=== PATIENT | male | born 1940 | race Two or more races ===

== ENCOUNTER 2016-10-05 02:33 | Inpatient (IN) | payer MEDICARE, MEDICAID ==
[2016-10-05] VITALS (13 sets, daily range): BP systolic 94–136; BP diastolic 54–84
[~2016-10-05] VITALS: Ht 167.6 cm; Wt 72.6 kg
[2016-10-05] MEDS ORDERED: VITAMIN B COMP1 EAC2 ORAL (02:46)
[2016-10-05] MEDS ORDERED: MILK OF MA400 MG/51 ORAL (02:46)
[2016-10-05] MEDS ORDERED: VITAMIN D1000 UNI1 ORAL (02:46)
[2016-10-05] MEDS ORDERED: ASPIR 8181 MG ORAL (02:46)
[2016-10-05] MEDS ORDERED: NITROGLYCERIN0.4 MG SL (02:46)
[2016-10-05] MEDS ORDERED: LIPITOR20 MG ORAL (02:46)
[2016-10-05] MEDS ORDERED: TYLENOL EXTRA500 MG ORAL (02:46)
[2016-10-05] MEDS ORDERED: DONEPEZIL HCL5 MG ORAL (02:46)
[2016-10-05 03:45] LABS: BASOPHILS % (AUTO) 1.8 % (0.0-2.0); EOSINOPHILS % (AUTO) 3.7 % (0.0-3.0); LYMPHOCYTES % (AUTO) 30.5 % (20.0-45.0); MEAN CORPUSCULAR HEMOGLOBIN 31.8 PG (27.0-31.0); MEAN CORPUSCULAR VOLUME 96 FL (80-99); MEAN PLATELET VOLUME 6.5 FL (6.5-10.1); MONOCYTES % (AUTO) 9.4 % (1.0-10.0); NEUTROPHILS % (AUTO) 54.5 % (45.0-75.0); PLATELET COUNT 205 K/UL (150-450); RED BLOOD COUNT 4.46 M/UL (4.70-6.10); RED CELL DISTRIBUTION WIDTH 12.8 % (11.6-14.8)
[2016-10-05 04:04] LABS: ALANINE AMINOTRANSFERASE 16 U/L (3-41); ALBUMIN/GLOBULIN RATIO 1.2 (1.0-2.7); ANION GAP 13 (5-15); ASPARTATE AMINO TRANSFERASE 26 U/L (5-40); CARBON DIOXIDE 26 mEQ/L (20-30); CHLORIDE 102 mEQ/L (98-107); CREATININE 1.5 mg/dL (0.7-1.2); HEMOLYSIS 116; POTASSIUM 4.9 mEQ/L (3.4-4.9); SODIUM 141 mEQ/L (135-145); TOTAL PROTEIN 7.1 g/dL (6.6-8.7)
[2016-10-05 04:33] LABS: APPEARANCE,URINE CLEAR; KETONES,URINE NEGATIVE (NEGATIVE); LEUKOCYTE ESTERASE ,URINE NEGATIVE (NEGATIVE); NITRITE,URINE NEGATIVE (NEGATIVE); PH,URINE 5 (4.5-8.0); PROTEIN,URINE NEGATIVE (NEGATIVE); UROBILINOGEN,URINE NORMAL MG/DL (0.0-1.0)
[2016-10-05 04:36] LABS: TROPONIN I < 0.30 ng/mL (<=0.30)
[2016-10-05] MEDS ORDERED: Haloperidol 5mg/ml Inj IM ONE (04:45)
--- NOTE | 2016-10-05 06:13 | Emergency Room Report ---
History of Present Illness General Chief Complaint: Upper Respiratory Illness Source: Medical Record Present Illness HPI 68-year-old male presents to ED for evaluation. Per EMS patient was coughing and congested at his convalescent home starting tonight. Cough is productive of yellowish sputum. No reported fevers chills. No chest pain or shortness of breath. Patient has dementia and is unable to provide any additional history at this time. No other aggravating or relieving factors. Denies any other associated symptoms Allergies: Coded Allergies: No Known Allergies (Unverified , 10/05/16) Patient History Past Medical History: COPD, dementia Past Surgical History: none Pertinent Family History: none Social History: Denies: alcohol use, drug use, smoking Immunizations: UTD Reviewed Nursing Documentation: PMH: Agreed, PSxH: Agreed Nursing Documentation-PMH Hx Hypertension: Yes - Hyperlipidemia Hx COPD: Yes History Of Psychiatric Problem: Yes - Alzheimers, Dementia Review of Systems All Other Systems: negative except mentioned in HPI Physical Exam Vital Signs Date Time Temp Pulse Resp B/P Pulse Ox O2 Delivery O2 Flow Rate FiO2 10/05/16 02:18 100 10/05/16 02:18 63 16 122/78 Room Air 10/05/16 02:29 97.8 Sp02 EP Interpretation: reviewed, normal General Appearance: no apparent distress, alert, GCS 15, non-toxic Head: normocephalic Eyes: bilateral eye PERRL, bilateral eye normal inspection ENT: normal ENT inspection Neck: normal inspection Respiratory: accessory muscle use, crackles Cardiovascular #1: regular rate, rhythm, no edema Gastrointestinal: normal bowel sounds, non tender, soft, non-distended, no guarding, no rebound Rectal: deferred Genitourinary: no CVA tenderness Musculoskeletal: normal inspection Neurologic: alert, oriented x3, responsive, motor strength/tone normal, sensory intact, speech normal Psychiatric: normal inspection Skin: normal inspection Lymphatic: normal inspection Medical Decision Making Diagnostic Impression: Primary Impression: Pneumonia Qualified Codes: J18.9 - Pneumonia, unspecified organism Additional Impression: ARF (acute renal failure) Qualified Codes: N17.9 - Acute kidney failure, unspecified ER Course Hospital Course 76-year-old M presenting to ED with respiratory distress, cough and crackles Differential diagnoses include: Pneumonia, CHF exacerbation, pneumothorax, fluid overload Clinical course Patient placed on stretcher. On quality assurance monitor final. After initial history and physical, I ordered labs, IV fluids, EKG, chest x-ray, blood cultures, UA. Patient placed on nasal cannula with O2 saturation improving Labs -leukocytosis noted, hemoglobin/hematocrit stable, BUN/Cr elevated, lactate okay troponins negative CXR - R lower lobe infiltrate Abx given. IVFs given. Case discussed with Dr. Atkinson and he agreed to the patient to his service for further care and support I feel this is a highly complex case requiring extensive working including EKG/ Rhythm strip, Xray/CT/US, Blood/urine lab work, repeat exams while in ED, and administration of strong opiates/narcotics for pain control, admission to hospital or close patient follow up. Diagnosis - pneumonia, ARF Patient admitted to floor in serious condition Labs Test 10/05/16 03:15 10/05/16 03:28 White Blood Count 11.0 K/UL (4.8-10.8) Red Blood Count 4.46 M/UL (4.70-6.10) Hemoglobin 14.2 G/DL (14.2-18.0) Hematocrit 42.9 % (42.0-52.0) Mean Corpuscular Volume 96 FL (80-99) Mean Corpuscular Hemoglobin 31.8 PG (27.0-31.0) Mean Corpuscular Hemoglobin Concent 33.0 G/DL (32.0-36.0) Red Cell Distribution Width 12.8 % (11.6-14.8) Platelet Count 205 K/UL (150-450) Mean Platelet Volume 6.5 FL (6.5-10.1) Neutrophils (%) (Auto) 54.5 % (45.0-75.0) Lymphocytes (%) (Auto) 30.5 % (20.0-45.0) Monocytes (%) (Auto) 9.4 % (1.0-10.0) Eosinophils (%) (Auto) 3.7 % (0.0-3.0) Basophils (%) (Auto) 1.8 % (0.0-2.0) Sodium Level 141 mEQ/L (135-145) Potassium Level 4.9 mEQ/L (3.4-4.9) Chloride Level 102 mEQ/L (98-107) Carbon Dioxide Level 26 mEQ/L (20-30) Anion Gap 13 (5-15) Blood Urea Nitrogen 26 mg/dL (7-23) Creatinine 1.5 mg/dL (0.7-1.2) Estimat Glomerular Filtration Rate mL/min (>60) Glucose Level 112 mg/dL (74-106) Lactic Acid Level 1.30 mmol/L (0.66-2.22) Calcium Level 9.0 mg/dL (8.6-10.2) Total Bilirubin 0.3 mg/dL (0.0-1.2) Aspartate Amino Transf (AST/SGOT) 26 U/L (5-40) Alanine Aminotransferase (ALT/SGPT) 16 U/L (3-41) Alkaline Phosphatase 93 U/L (40-129) Total Creatine Kinase 196 U/L (38-174) Troponin I < 0.30 ng/mL (<=0.30) Total Protein 7.1 g/dL (6.6-8.7) Albumin 4.0 g/dL (3.5-5.2) Globulin 3.1 g/dL Albumin/Globulin Ratio 1.2 (1.0-2.7) Urine Color Pale yellow Urine Appearance Clear Urine pH 5 (4.5-8.0) Urine Specific [place] 1.020 (1.005-1.035) Urine Protein Negative (NEGATIVE) Urine Glucose (UA) Negative (NEGATIVE) Urine Ketones Negative (NEGATIVE) Urine Occult Blood Negative (NEGATIVE) Urine Nitrite Negative (NEGATIVE) Urine Bilirubin Negative (NEGATIVE) Urine Urobilinogen Normal MG/DL (0.0-1.0) Urine Leukocyte Esterase Negative (NEGATIVE) EKG Diagnostic Results Rate: bradycardiac Rhythm: NSR ST Segments: no acute changes ASA given to the pt in ED: No Rhythm Strip Diag. Results EP Interpretation: yes Rhythm: NSR, no PVC's, no ectopy Chest X-Ray Diagnostic Results EP Interpretation: Yes Findings: no pneumothorax, no acute cardiopulmonary disease, other - atelectasis Number of Views: 1 Last Vital Signs Date Time Temp Pulse Resp B/P Pulse Ox O2 Delivery O2 Flow Rate FiO2 10/05/16 05:49 97.8 62 16 114/67 98 Room Air Status: improved Disposition: ADMITTED INPATIENT Condition: Serious Referrals: MERLINE SNYDER (PCP) JUANCARLOS PRICE M.D. Oct 05, 2016 06:13
[2016-10-05 07:14] LABS: CKMB < 1.5 ng/mL (< 6.7)
--- NOTE | 2016-10-05 10:50 | Diagnostic Imaging Report ---
Indication: Chest Pain Comparison: None A single view chest radiograph was obtained. Findings: No definite infiltrate or pulmonary vascular congestion identified. The heart is enlarged. The aorta is mildly enlarged consistent with atherosclerotic vascular disease. The bones are osteopenic. Impression: No acute disease
[2016-10-05] MEDS ORDERED: Nitroglycerin Subl 0.4mg tab (Bottle Of 25) SL PRN (19:30)
[2016-10-05] MEDS ORDERED: Azithromycin 250mg tab ORAL SCH (21:00)
[2016-10-05] MEDS: Atorvastatin 20mg tab ORAL SCH (22:24)
[2016-10-05] MEDS: Donepezil 5mg Tab ORAL SCH (22:25)
[2016-10-05] MEDS: cefTRIAXone 1 GM in D5W 50 ML IVPB SCH (22:27)
[2016-10-05] MEDS: Azithromycin 250mg tab ORAL SCH (22:39)
[2016-10-06] VITALS (7 sets, daily range): BP systolic 118–136; BP diastolic 61–77
--- NOTE | 2016-10-06 | History and Physical ---
History of Present Illness General Reason for Hospitalization: Upper Respiratory Illness Present Illness HPI Cough and congestion for a couple of days. Allergies: Coded Allergies: No Known Allergies (Unverified , 10/05/16) Medication History Scheduled Aspirin* (Aspir 81*), 81 MG ORAL DAILY, (Reported) Atorvastatin Calcium* (Lipitor*), 20 MG ORAL DAILY, (Reported) Cholecalciferol (Vitamin D3)* (Vitamin D*), 1,000 UNIT ORAL DAILY, (Reported) Donepezil Hcl* (Donepezil Hcl*), 5 MG ORAL DAILY, (Reported) Magnesium Hydroxide* (Milk Of Magnesia*), 30 ML ORAL DAILY, (Reported) Scheduled PRN Acetaminophen* (Tylenol Extra Strength*), 500 MG ORAL Q6H PRN for Mild Pain/ Temp > 100.5, (Reported) Miscellaneous Medications Nitroglycerin (Nitroglycerin), 0.4 MG SL, (Reported) Vitamin B Complex (Vitamin B Complex), 1 CAP ORAL, (Reported) Patient History Limited by: age History Provided By: Medical Record Healthcare decision maker Resuscitation status Full Code Advanced Directive on File Past Medical/Surgical History Past Medical/Surgical History: (1) Hypertension (2) Hyperlipidemia (3) Atherosclerotic cardiovascular disease Review of Systems Constitutional: Reports: no symptoms Eye: Reports: no symptoms ENT: Reports: no symptoms Respiratory: Reports: cough, shortness of breath, wheezing Gastrointestinal: Reports: no symptoms Musculoskeletal: Reports: no symptoms Skin: Reports: no symptoms Neurological: Reports: no symptoms Endocrine: Reports: no symptoms Hematologic/Lymphatic: Reports: no symptoms Physical Exam HEENT: normocephalic, atraumatic, PERRL, EOMI Neck: non-tender Respiratory/Chest: no respiratory distress, crackles/rales, rhonchi - bilaterally Breasts: no masses Cardiovascular/Chest: normal rate, regular rhythm Abdomen: normal bowel sounds, non tender, soft Genitourinary/Rectal: normal genital exam Extremities: normal range of motion, non-tender Skin Exam: warm/dry 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, no motor/sensory deficits Lymphatic: anterior cervical Musculoskeletal: normal muscle bulk Last 24 Hour Vital Signs Date Time Temp Pulse Resp B/P Pulse Ox O2 Delivery O2 Flow Rate FiO2 10/05/16 20:00 97.0 65 18 129/75 95 Room Air 10/05/16 15:58 97.8 64 13 121/68 97 Room Air 64 10/05/16 15:27 97.8 64 13 121/68 97 Room Air 10/05/16 14:30 97.8 64 13 121/68 97 Room Air 10/05/16 13:30 97.8 64 16 136/63 96 Room Air 10/05/16 12:30 97.8 71 15 136/63 96 Room Air 10/05/16 10:32 97.8 60 18 108/69 97 Room Air 10/05/16 09:30 97.8 65 15 122/84 97 Room Air 10/05/16 08:59 97.8 58 12 94/58 96 Room Air 10/05/16 07:21 97.8 64 15 131/72 97 Room Air 10/05/16 06:49 97.8 69 16 136/80 97 Room Air 10/05/16 05:49 97.8 62 16 114/67 98 Room Air 10/05/16 05:03 97.8 61 15 130/65 97 Room Air 10/05/16 02:29 58 18 Room Air 10/05/16 02:29 97.8 57 17 108/54 97 Room Air 10/05/16 02:29 58 18 10/05/16 02:18 63 16 122/78 100 Room Air 10/05/16 02:18 100 Intake and Output 10/04/16 10/05/16 19:00 07:00 Intake Total 500 ml Output Total 250 ml Balance 250 ml IV Total 500 ml Output Urine Total 250 ml # Voids 1 Laboratory Tests Test 10/05/16 03:15 10/05/16 03:28 White Blood Count 11.0 K/UL (4.8-10.8) H Red Blood Count 4.46 M/UL (4.70-6.10) L Hemoglobin 14.2 G/DL (14.2-18.0) Hematocrit 42.9 % (42.0-52.0) Mean Corpuscular Volume 96 FL (80-99) Mean Corpuscular Hemoglobin 31.8 PG (27.0-31.0) H Mean Corpuscular Hemoglobin Concent 33.0 G/DL (32.0-36.0) Red Cell Distribution Width 12.8 % (11.6-14.8) Platelet Count 205 K/UL (150-450) Mean Platelet Volume 6.5 FL (6.5-10.1) Neutrophils (%) (Auto) 54.5 % (45.0-75.0) Lymphocytes (%) (Auto) 30.5 % (20.0-45.0) Monocytes (%) (Auto) 9.4 % (1.0-10.0) Eosinophils (%) (Auto) 3.7 % (0.0-3.0) H Basophils (%) (Auto) 1.8 % (0.0-2.0) Sodium Level 141 mEQ/L (135-145) Potassium Level 4.9 mEQ/L (3.4-4.9) Chloride Level 102 mEQ/L (98-107) Carbon Dioxide Level 26 mEQ/L (20-30) Anion Gap 13 (5-15) Blood Urea Nitrogen 26 mg/dL (7-23) H Creatinine 1.5 mg/dL (0.7-1.2) H Estimat Glomerular Filtration Rate mL/min (>60) Glucose Level 112 mg/dL (74-106) H Lactic Acid Level 1.30 mmol/L (0.66-2.22) Calcium Level 9.0 mg/dL (8.6-10.2) Total Bilirubin 0.3 mg/dL (0.0-1.2) Aspartate Amino Transf (AST/SGOT) 26 U/L (5-40) Alanine Aminotransferase (ALT/SGPT) 16 U/L (3-41) Alkaline Phosphatase 93 U/L (40-129) Total Creatine Kinase 196 U/L (38-174) H Creatine Kinase MB < 1.5 ng/mL (< 6.7) Creatine Kinase MB Relative Index Troponin I < 0.30 ng/mL (<=0.30) Pro-B-Type Natriuretic Peptide 104 pg/mL (0-450) Total Protein 7.1 g/dL (6.6-8.7) Albumin 4.0 g/dL (3.5-5.2) Globulin 3.1 g/dL Albumin/Globulin Ratio 1.2 (1.0-2.7) Urine Color Pale yellow Urine Appearance Clear Urine pH 5 (4.5-8.0) Urine Specific [place] 1.020 (1.005-1.035) Urine Protein Negative (NEGATIVE) Urine Glucose (UA) Negative (NEGATIVE) Urine Ketones Negative (NEGATIVE) Urine Occult Blood Negative (NEGATIVE) Urine Nitrite Negative (NEGATIVE) Urine Bilirubin Negative (NEGATIVE) Urine Urobilinogen Normal MG/DL (0.0-1.0) Urine Leukocyte Esterase Negative (NEGATIVE) Microbiology Date/Time Source Procedure Growth Status 10/05/16 03:15 Nasal Nares Influenza Types A,B Antigen (MERARI) - Final Complete Height (Feet): 5 Height (Inches): 6.00 Weight (Pounds): 160 Medications Current Medications Medications (Trade) Dose Ordered Sig/Laurie Route PRN Reason Start Time Stop Time Status Last Admin Dose Admin Acetaminophen (Tylenol) 650 mg Q6HR PRN ORAL Mild Pain/Temp > 100.5 10/05/16 19:30 11/04/16 19:29 Aspirin (Ecotrin) 81 mg DAILY ORAL 10/06/16 09:00 11/05/16 08:59 Atorvastatin Calcium (Lipitor) 20 mg QHS ORAL 10/05/16 21:00 11/04/16 20:59 10/05/16 22:24 Azithromycin (Zithromax) 250 mg Taper Q24H ORAL 10/05/16 21:00 10/12/16 20:59 10/05/16 22:39 Ceftriaxone Sodium/Dextrose (Rocephin/D5W 50ml) 50 ml @ 100 mls/hr Q24H IVPB 10/05/16 21:00 10/12/16 20:59 10/05/16 22:27 Donepezil HCl (Aricept) 5 mg QHS ORAL 10/05/16 21:00 11/04/16 20:59 10/05/16 22:25 Heparin Sodium (Porcine) (Heparin 5000 units/ml) 5,000 units EVERY 12 HOURS SUBQ 10/06/16 09:00 11/05/16 08:59 Nitroglycerin (Ntg) 0.4 mg Q5M PRN SL CHEST PAIN 10/05/16 19:30 11/04/16 19:29 Vitamin B Complex (Vitamin B Complex) 1 ea DAILY ORAL 10/06/16 09:00 11/05/16 08:59 Assessment/Plan Problem List: (1) Pneumonia ICD Codes: J18.9 - Pneumonia, unspecified organism SNOMED: 474927379 Qualifiers: Qualified Codes: J18.9 - Pneumonia, unspecified organism (2) ARF (acute renal failure) ICD Codes: N17.9 - Acute kidney failure, unspecified SNOMED: 73334942 Qualifiers: Qualified Codes: N17.9 - Acute kidney failure, unspecified (3) Hypertension ICD Codes: I10 - Essential (primary) hypertension SNOMED: 45294751 (4) Hyperlipidemia ICD Codes: E78.5 - Hyperlipidemia, unspecified SNOMED: 35106286 (5) Atherosclerotic cardiovascular disease ICD Codes: I25.10 - Atherosclerotic heart disease of [place] coronary artery without angina pectoris SNOMED: 44862270 Assessment/Plan Patient will be on Zithromax and NENA Morris Oct 06, 2016 00:00
[2016-10-06] MEDS: DuoNeb 0.5-3(2.5)mg/3ml neb HHN SCH ×4 (02:23→19:46)
[2016-10-06] MEDS: Aspirin EC 81mg tab ORAL SCH (10:01)
[2016-10-06] MEDS: Heparin 5000 units/ml inj SUBQ SCH ×2 (10:02→20:36)
[2016-10-06 10:28] LABS: MEAN CORPUSCULAR HEMOGLOBIN 30.9 PG (27.0-31.0); MEAN CORPUSCULAR HGB CONC 31.8 G/DL (32.0-36.0); MEAN CORPUSCULAR VOLUME 97 FL (80-99); MEAN PLATELET VOLUME 6.5 FL (6.5-10.1); PLATELET COUNT 238 K/UL (150-450); RED BLOOD COUNT 4.47 M/UL (4.70-6.10); RED CELL DISTRIBUTION WIDTH 12.8 % (11.6-14.8); WHITE BLOOD COUNT 9.4 K/UL (4.8-10.8)
[2016-10-06 10:49] LABS: ALANINE AMINOTRANSFERASE 16 U/L (3-41); ALBUMIN/GLOBULIN RATIO 1.4 (1.0-2.7); ANION GAP 14 (5-15); ASPARTATE AMINO TRANSFERASE 25 U/L (5-40); CALCIUM 9.1 mg/dL (8.6-10.2); CARBON DIOXIDE 26 mEQ/L (20-30); CHLORIDE 101 mEQ/L (98-107); CREATININE 1.3 mg/dL (0.7-1.2); HEMOLYSIS 6; POTASSIUM 4.2 mEQ/L (3.4-4.9); SODIUM 141 mEQ/L (135-145)
[2016-10-06 11:25] LABS: BAND NEUTROPHILS % (MANUAL) 0 % (0-8); BASOPHILS % (MANUAL) 0 % (0-2); EOSINOPHILS % (MANUAL) 0 % (0-3); LYMPHOCYTES % (MANUAL) 31 % (20-45); NEUTROPHILS % (MANUAL) 58 % (45-75); PLATELET ESTIMATE ADEQUATE; PLATELET MORPHOLOGY NORMAL; TOTAL CELLS COUNTED 100
--- NOTE | 2016-10-06 14:26 | General Progress Note ---
Assessment/Plan Problem List: (1) Pneumonia ICD Codes: J18.9 - Pneumonia, unspecified organism SNOMED: 328873180 Qualifiers: Qualified Codes: J18.9 - Pneumonia, unspecified organism (2) ARF (acute renal failure) ICD Codes: N17.9 - Acute kidney failure, unspecified SNOMED: 81877748 Qualifiers: Qualified Codes: N17.9 - Acute kidney failure, unspecified (3) Hypertension ICD Codes: I10 - Essential (primary) hypertension SNOMED: 78309142 (4) Hyperlipidemia ICD Codes: E78.5 - Hyperlipidemia, unspecified SNOMED: 65476667 (5) Atherosclerotic cardiovascular disease ICD Codes: I25.10 - Atherosclerotic heart disease of [place] coronary artery without angina pectoris SNOMED: 23480943 Status: progressing Assessment/Plan will repeat cxr Subjective Date patient seen: Oct 06, 2016 Time patient seen: 14:17 ROS Limited/Unobtainable: No Constitutional: Reports: no symptoms HEENT: Reports: no symptoms Cardiovascular: Reports: no symptoms Respiratory: Reports: cough Gastrointestinal/Abdominal: Reports: no symptoms Genitourinary: Reports: no symptoms Neurologic/Psychiatric: Reports: no symptoms Endocrine: Reports: no symptoms Hematologic/Lymphatic: Reports: no symptoms Allergies: Coded Allergies: No Known Allergies (Unverified , 10/05/16) Objective Last 24 Hour Vital Signs Date Time Temp Pulse Resp B/P Pulse Ox O2 Delivery O2 Flow Rate FiO2 10/06/16 13:43 67 18 100 Room Air 10/06/16 13:30 65 16 Room Air 10/06/16 12:00 97.8 67 19 130/75 96 Room Air 10/06/16 08:00 96.6 64 19 122/68 96 Room Air 10/06/16 07:15 69 18 100 Room Air 10/06/16 07:03 68 18 97 Room Air 10/06/16 04:00 98.2 69 19 133/74 96 Room Air 10/06/16 01:40 68 20 96 Room Air 10/06/16 01:30 63 20 94 Room Air 21 10/06/16 00:00 97.6 64 18 130/77 95 Room Air 10/05/16 22:00 62 20 Room Air 21 10/05/16 20:00 97.0 65 18 129/75 95 Room Air 10/05/16 15:58 97.8 64 13 121/68 97 Room Air 64 10/05/16 15:27 97.8 64 13 121/68 97 Room Air 10/05/16 14:30 97.8 64 13 121/68 97 Room Air Intake and Output 10/05/16 10/06/16 19:00 07:00 Intake Total 1000 ml 500 ml Output Total 750 ml 250 ml Balance 250 ml 250 ml Intake Oral 500 ml IV Total 1000 ml Output Urine Total 750 ml 250 ml # Voids 3 Laboratory Tests 10/06/16 09:45: White Blood Count 9.4, Red Blood Count 4.47L, Hemoglobin 13.8L, Hematocrit 43.5 , Mean Corpuscular Volume 97, Mean Corpuscular Hemoglobin 30.9, Mean Corpuscular Hemoglobin Concent 31.8L, Red Cell Distribution Width 12.8, Platelet Count 238, Mean Platelet Volume 6.5, Neutrophils (%) (Auto) , Lymphocytes (%) (Auto) , Monocytes (%) (Auto) , Eosinophils (%) (Auto) , Basophils (%) (Auto) , Differential Total Cells Counted 100, Neutrophils % ( Manual) 58, Lymphocytes % (Manual) 31, Monocytes % (Manual) 11H, Eosinophils % ( Manual) 0, Basophils % (Manual) 0, Band Neutrophils 0, Platelet Estimate Adequate, Platelet Morphology Normal, Red Blood Cell Morphology Normal, Sodium Level 141, Potassium Level 4.2, Chloride Level 101, Carbon Dioxide Level 26, Anion Gap 14, Blood Urea Nitrogen 16, Creatinine 1.3H, Estimat Glomerular Filtration Rate , Glucose Level 143H, Calcium Level 9.1, Total Bilirubin 0.4, Aspartate Amino Transf (AST/SGOT) 25, Alanine Aminotransferase (ALT/SGPT) 16, Alkaline Phosphatase 104, Total Protein 7.0, Albumin 4.1, Globulin 2.9, Albumin/ Globulin Ratio 1.4 Height (Feet): 5 Height (Inches): 6.00 Weight (Pounds): 160 General Appearance: no apparent distress EENT: PERRL/EOMI Neck: non-tender Cardiovascular: normal rate, regular rhythm, no JVD Respiratory/Chest: no respiratory distress, decreased breath sounds Abdomen: normal bowel sounds Extremities: normal range of motion 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
--- NOTE | 2016-10-06 15:11 | Consultation ---
History of Present Illness General Chief Complaint: Upper Respiratory Illness Referring physician: Dr Atkinson Reason for Consultation: Acute renal injury Present Illness HPI The patient is a 68-year-old male who presented to ED with coughing and congested. Cough is productive of yellowish sputum. No reported fevers or chills. No chest pain or shortness of breath. Patient has dementia and is unable to provide any history at this time. History is therefore obtained from medical records. No other aggravating or relieving factors. Denies any other associated symptoms. He is a retirement resident. Allergies: Coded Allergies: No Known Allergies (Unverified , 10/05/16) Medication History Scheduled Aspirin* (Aspir 81*), 81 MG ORAL DAILY, (Reported) Atorvastatin Calcium* (Lipitor*), 20 MG ORAL DAILY, (Reported) Cholecalciferol (Vitamin D3)* (Vitamin D*), 1,000 UNIT ORAL DAILY, (Reported) Donepezil Hcl* (Donepezil Hcl*), 5 MG ORAL DAILY, (Reported) Magnesium Hydroxide* (Milk Of Magnesia*), 30 ML ORAL DAILY, (Reported) Scheduled PRN Acetaminophen* (Tylenol Extra Strength*), 500 MG ORAL Q6H PRN for Mild Pain/ Temp > 100.5, (Reported) Miscellaneous Medications Nitroglycerin (Nitroglycerin), 0.4 MG SL, (Reported) Vitamin B Complex (Vitamin B Complex), 1 CAP ORAL, (Reported) Patient History Limited by: language barrier, medical condition, other - mental status History Provided By: Medical Record Healthcare decision maker Resuscitation status Full Code Advanced Directive on File Past Medical/Surgical History Past Medical/Surgical History: (1) Dementia (2) Hypertension (3) Hyperlipidemia (4) Atherosclerotic cardiovascular disease Social History Social History: (1) [facility] resident (2) No history of alcohol use (3) Does not smoke (4) No illicit drug use Review of Systems All Other Systems: negative except mentioned in HPI ROS Narrative unable to obtain due to pt's mental state Physical Exam General Appearance: no apparent distress, confused Lines, tubes and drains: peripheral HEENT: normocephalic Neck: normal alignment Respiratory/Chest: decreased breath sounds Cardiovascular/Chest: normal peripheral pulses Abdomen: normal bowel sounds, non tender Extremities: no calf tenderness Skin Exam: normal pigmentation, warm/dry Neurologic: disoriented Last 24 Hour Vital Signs Date Time Temp Pulse Resp B/P Pulse Ox O2 Delivery O2 Flow Rate FiO2 10/06/16 13:43 67 18 100 Room Air 21 10/06/16 13:30 65 16 Room Air 21 10/06/16 12:00 97.8 67 19 130/75 96 Room Air 10/06/16 08:00 96.6 64 19 122/68 96 Room Air 10/06/16 07:15 69 18 100 Room Air 21 10/06/16 07:03 68 18 97 Room Air 21 10/06/16 04:00 98.2 69 19 133/74 96 Room Air 10/06/16 01:40 68 20 96 Room Air 21 10/06/16 01:30 63 20 94 Room Air 21 10/06/16 00:00 97.6 64 18 130/77 95 Room Air 10/05/16 22:00 62 20 Room Air 21 10/05/16 20:00 97.0 65 18 129/75 95 Room Air 10/05/16 15:58 97.8 64 13 121/68 97 Room Air 64 10/05/16 15:27 97.8 64 13 121/68 97 Room Air Intake and Output 10/05/16 10/06/16 19:00 07:00 Intake Total 1000 ml 500 ml Output Total 750 ml 250 ml Balance 250 ml 250 ml Intake Oral 500 ml IV Total 1000 ml Output Urine Total 750 ml 250 ml # Voids 3 Laboratory Tests Test 10/06/16 09:45 White Blood Count 9.4 K/UL (4.8-10.8) Red Blood Count 4.47 M/UL (4.70-6.10) L Hemoglobin 13.8 G/DL (14.2-18.0) L Hematocrit 43.5 % (42.0-52.0) Mean Corpuscular Volume 97 FL (80-99) Mean Corpuscular Hemoglobin 30.9 PG (27.0-31.0) Mean Corpuscular Hemoglobin Concent 31.8 G/DL (32.0-36.0) L Red Cell Distribution Width 12.8 % (11.6-14.8) Platelet Count 238 K/UL (150-450) Mean Platelet Volume 6.5 FL (6.5-10.1) Neutrophils (%) (Auto) % (45.0-75.0) Lymphocytes (%) (Auto) % (20.0-45.0) Monocytes (%) (Auto) % (1.0-10.0) Eosinophils (%) (Auto) % (0.0-3.0) Basophils (%) (Auto) % (0.0-2.0) Differential Total Cells Counted 100 Neutrophils % (Manual) 58 % (45-75) Lymphocytes % (Manual) 31 % (20-45) Monocytes % (Manual) 11 % (1-10) H Eosinophils % (Manual) 0 % (0-3) Basophils % (Manual) 0 % (0-2) Band Neutrophils 0 % (0-8) Platelet Estimate Adequate Platelet Morphology Normal Red Blood Cell Morphology Normal Sodium Level 141 mEQ/L (135-145) Potassium Level 4.2 mEQ/L (3.4-4.9) Chloride Level 101 mEQ/L (98-107) Carbon Dioxide Level 26 mEQ/L (20-30) Anion Gap 14 (5-15) Blood Urea Nitrogen 16 mg/dL (7-23) Creatinine 1.3 mg/dL (0.7-1.2) H Estimat Glomerular Filtration Rate mL/min (>60) Glucose Level 143 mg/dL (74-106) H Calcium Level 9.1 mg/dL (8.6-10.2) Total Bilirubin 0.4 mg/dL (0.0-1.2) Aspartate Amino Transf (AST/SGOT) 25 U/L (5-40) Alanine Aminotransferase (ALT/SGPT) 16 U/L (3-41) Alkaline Phosphatase 104 U/L (40-129) Total Protein 7.0 g/dL (6.6-8.7) Albumin 4.1 g/dL (3.5-5.2) Globulin 2.9 g/dL Albumin/Globulin Ratio 1.4 (1.0-2.7) Height (Feet): 5 Height (Inches): 6.00 Weight (Pounds): 160 Medications Current Medications Medications (Trade) Dose Ordered Sig/Laurie Route PRN Reason Start Time Stop Time Status Last Admin Dose Admin Acetaminophen (Tylenol) 650 mg Q6HR PRN ORAL Mild Pain/Temp > 100.5 10/05/16 19:30 11/04/16 19:29 Albuterol/ Ipratropium (DuoNeb 0.5-3(2.5)mg/3ml) 3 ml Q6HRT HHN 10/06/16 01:00 10/11/16 00:59 10/06/16 13:31 Aspirin (Ecotrin) 81 mg DAILY ORAL 10/06/16 09:00 11/05/16 08:59 10/06/16 10:01 Atorvastatin Calcium (Lipitor) 20 mg QHS ORAL 10/05/16 21:00 11/04/16 20:59 10/05/16 22:24 Azithromycin (Zithromax) 250 mg Taper Q24H ORAL 10/05/16 21:00 10/12/16 20:59 10/05/16 22:39 Ceftriaxone Sodium/Dextrose (Rocephin/D5W 50ml) 50 ml @ 100 mls/hr Q24H IVPB 10/05/16 21:00 10/12/16 20:59 10/05/16 22:27 Donepezil HCl (Aricept) 5 mg QHS ORAL 10/05/16 21:00 11/04/16 20:59 10/05/16 22:25 Heparin Sodium (Porcine) (Heparin 5000 units/ml) 5,000 units EVERY 12 HOURS SUBQ 10/06/16 09:00 11/05/16 08:59 10/06/16 10:02 Nitroglycerin (Ntg) 0.4 mg Q5M PRN SL CHEST PAIN 10/05/16 19:30 11/04/16 19:29 Vitamin B Complex (Vitamin B Complex) 1 ea DAILY ORAL 10/06/16 09:00 11/05/16 08:59 10/06/16 10:00 Objective Narrative Procedure: XRAY Chest 1v A single view chest radiograph was obtained. Findings: No definite infiltrate or pulmonary vascular congestion identified. The heart is enlarged. The aorta is mildly enlarged consistent with atherosclerotic vascular disease. The bones are osteopenic. Impression: No acute disease Assessment/Plan Problem List: (1) ARF (acute renal failure) ICD Codes: N17.9 - Acute kidney failure, unspecified SNOMED: 44853826 Qualifiers: Qualified Codes: N17.9 - Acute kidney failure, unspecified (2) Pneumonia ICD Codes: J18.9 - Pneumonia, unspecified organism SNOMED: 672356020 Qualifiers: Qualified Codes: J18.9 - Pneumonia, unspecified organism (3) Dementia ICD Codes: F03.90 - Unspecified dementia without behavioral disturbance SNOMED: 64733446 Status: stable Assessment/Plan Monitor BUN/CR Monitor lytes Renal ultrasound Avoid nephrotoxic agents Monitor neuro status Silvia Peters N.P. Oct 06, 2016 15:11
--- NOTE | 2016-10-06 17:48 | Cardiology Report ---
APPROVED REPORT EKG Measurement Heart [id number] Sinus bradycardia Otherwise normal ECG
[2016-10-06] MEDS: Donepezil 5mg Tab ORAL SCH (20:34)
[2016-10-06] MEDS: cefTRIAXone 1 GM in D5W 50 ML IVPB SCH (20:34)
[2016-10-06] MEDS: Atorvastatin 20mg tab ORAL SCH (20:34)
[2016-10-06] MEDS: Azithromycin 250mg tab ORAL SCH (20:35)
[2016-10-06] MEDS ORDERED: Azithromycin 250mg tab ORAL SCH (21:00)
[2016-10-07] MEDS: DuoNeb 0.5-3(2.5)mg/3ml neb HHN SCH ×4 (00:33→19:42)
[2016-10-07 04:00] VITALS: BP 130/69
[2016-10-07 07:39] LABS: BASOPHILS % (AUTO) 0.8 % (0.0-2.0); EOSINOPHILS % (AUTO) 1.5 % (0.0-3.0); LYMPHOCYTES % (AUTO) 27.8 % (20.0-45.0); MEAN CORPUSCULAR HEMOGLOBIN 31.3 PG (27.0-31.0); MEAN CORPUSCULAR HGB CONC 32.1 G/DL (32.0-36.0); MEAN CORPUSCULAR VOLUME 98 FL (80-99); MEAN PLATELET VOLUME 5.6 FL (6.5-10.1); MONOCYTES % (AUTO) 8.7 % (1.0-10.0); NEUTROPHILS % (AUTO) 61.2 % (45.0-75.0); PLATELET COUNT 219 K/UL (150-450); WHITE BLOOD COUNT 8.9 K/UL (4.8-10.8)
[2016-10-07 07:42] LABS: MAGNESIUM 1.9 mg/dL (1.7-2.5); PHOSPHORUS 3.3 mg/dL (2.5-4.8)
[2016-10-07 07:44] LABS: ANION GAP 18 (5-15); CALCIUM 8.9 mg/dL (8.6-10.2); CARBON DIOXIDE 23 mEQ/L (20-30); CHLORIDE 103 mEQ/L (98-107); CREATININE 1.3 mg/dL (0.7-1.2); HEMOLYSIS 3; POTASSIUM 3.6 mEQ/L (3.4-4.9); SODIUM 144 mEQ/L (135-145)
[2016-10-07 08:00] VITALS: BP 153/79
[2016-10-07] MEDS: Aspirin EC 81mg tab ORAL SCH (09:22)
[2016-10-07] MEDS: Heparin 5000 units/ml inj SUBQ SCH ×2 (09:23→21:16)
[2016-10-07 12:00] VITALS: BP 128/77
--- NOTE | 2016-10-07 12:26 | Nephrology Progress Note ---
Assessment/Plan Problem List: (1) ARF (acute renal failure) (2) Pneumonia (3) Dementia (4) Hypertension (5) Hyperlipidemia Plan Monitor BUN/CR Monitor lytes Avoid nephrotoxic agents Monitor neuro status AM labs Subjective ROS Limited/Unobtainable: Yes Subjective In bed, in no distress Objective Objective Last 24 Hour Vital Signs Date Time Temp Pulse Resp B/P Pulse Ox O2 Delivery O2 Flow Rate FiO2 10/07/16 08:00 97.5 86 20 153/79 98 Room Air 10/07/16 07:43 77 16 100 Room Air 21 10/07/16 07:35 72 16 99 Room Air 21 10/07/16 06:39 97.4 10/07/16 04:00 97.4 81 18 130/69 97 Room Air 10/07/16 00:35 67 18 99 Room Air 21 10/07/16 00:34 66 18 Room Air 21 10/06/16 23:59 97.5 81 18 130/68 97 Room Air 10/06/16 20:00 97.7 74 18 136/76 98 Room Air 10/06/16 19:48 64 18 100 Room Air 21 10/06/16 19:47 67 18 Room Air 21 10/06/16 16:25 97.7 64 20 118/61 95 Room Air 10/06/16 13:43 67 18 100 Room Air 21 10/06/16 13:30 65 16 Room Air 21 Intake and Output 10/06/16 10/07/16 18:59 06:59 Intake Total 600 ml 700 ml Output Total 500 ml Balance 600 ml 200 ml Intake Oral 600 ml 700 ml Output Urine Total 500 ml # Voids 3 2 # Bowel Movements 1 1 Laboratory Tests 10/07/16 05:25: White Blood Count 8.9, Red Blood Count 4.10L, Hemoglobin 12.8L, Hematocrit 40.0L , Mean Corpuscular Volume 98, Mean Corpuscular Hemoglobin 31.3H, Mean Corpuscular Hemoglobin Concent 32.1, Red Cell Distribution Width 13.0, Platelet Count 219, Mean Platelet Volume 5.6L, Neutrophils (%) (Auto) 61.2, Lymphocytes ( %) (Auto) 27.8, Monocytes (%) (Auto) 8.7, Eosinophils (%) (Auto) 1.5, Basophils (%) (Auto) 0.8, Sodium Level 144, Potassium Level 3.6, Chloride Level 103, Carbon Dioxide Level 23, Anion Gap 18H, Blood Urea Nitrogen 17, Creatinine 1.3H , Estimat Glomerular Filtration Rate , Glucose Level 114H, Calcium Level 8.9, Phosphorus Level 3.3, Magnesium Level 1.9 Height (Feet): 5 Height (Inches): 6.00 Weight (Pounds): 160 General Appearance: no apparent distress EENT: normal ENT inspection Neck: normal alignment Cardiovascular: normal rate, regular rhythm, no JVD Respiratory/Chest: normal breath sounds, no respiratory distress Abdomen: soft, no organomegaly Extremities: normal range of motion Neurologic: disoriented Silvia Peters N.P. Oct 07, 2016 12:26
[2016-10-07 16:18] VITALS: BP 143/77
[2016-10-07 20:32] VITALS: BP 141/80
[2016-10-07] MEDS: cefTRIAXone 1 GM in D5W 50 ML IVPB SCH (21:12)
[2016-10-07] MEDS: Donepezil 5mg Tab ORAL SCH (21:15)
[2016-10-07] MEDS: Azithromycin 250mg tab ORAL SCH (21:15)
[2016-10-07] MEDS: Atorvastatin 20mg tab ORAL SCH (21:15)
--- NOTE | 2016-10-07 21:45 | General Progress Note ---
Assessment/Plan Problem List: (1) Pneumonia ICD Codes: J18.9 - Pneumonia, unspecified organism SNOMED: 238167220 Qualifiers: Qualified Codes: J18.9 - Pneumonia, unspecified organism (2) ARF (acute renal failure) ICD Codes: N17.9 - Acute kidney failure, unspecified SNOMED: 27877530 Qualifiers: Qualified Codes: N17.9 - Acute kidney failure, unspecified (3) Hypertension ICD Codes: I10 - Essential (primary) hypertension SNOMED: 44631976 (4) Hyperlipidemia ICD Codes: E78.5 - Hyperlipidemia, unspecified SNOMED: 43360025 (5) Atherosclerotic cardiovascular disease ICD Codes: I25.10 - Atherosclerotic heart disease of [place] coronary artery without angina pectoris SNOMED: 78273933 Assessment/Plan will repeat cxr Subjective Date patient seen: Oct 07, 2016 Time patient seen: 11:25 Constitutional: Reports: no symptoms HEENT: Reports: no symptoms Respiratory: Reports: cough Gastrointestinal/Abdominal: Reports: no symptoms Genitourinary: Reports: no symptoms Neurologic/Psychiatric: Reports: no symptoms Endocrine: Reports: no symptoms Hematologic/Lymphatic: Reports: no symptoms Allergies: Coded Allergies: No Known Allergies (Unverified , 10/05/16) Objective Last 24 Hour Vital Signs Date Time Temp Pulse Resp B/P Pulse Ox O2 Delivery O2 Flow Rate FiO2 10/07/16 20:32 98.4 71 20 141/80 100 Room Air 10/07/16 19:55 83 18 96 Room Air 10/07/16 19:46 85 18 94 Room Air 10/07/16 16:18 97.6 75 20 143/77 95 Room Air 10/07/16 13:00 Room Air 10/07/16 13:00 Room Air 10/07/16 12:00 97.2 68 20 128/77 100 Room Air 10/07/16 08:00 97.5 86 20 153/79 98 Room Air 10/07/16 07:43 77 16 100 Room Air 10/07/16 07:35 72 16 99 Room Air 10/07/16 06:39 97.4 10/07/16 04:00 97.4 81 18 130/69 97 Room Air 10/07/16 00:35 67 18 99 Room Air 10/07/16 00:34 66 18 Room Air 10/06/16 23:59 97.5 81 18 130/68 97 Room Air Intake and Output 10/06/16 10/07/16 19:00 07:00 Intake Total 600 ml 700 ml Output Total 500 ml Balance 600 ml 200 ml Intake Oral 600 ml 700 ml Output Urine Total 500 ml # Voids 3 2 # Bowel Movements 1 1 Laboratory Tests 10/07/16 05:25: White Blood Count 8.9, Red Blood Count 4.10L, Hemoglobin 12.8L, Hematocrit 40.0L , Mean Corpuscular Volume 98, Mean Corpuscular Hemoglobin 31.3H, Mean Corpuscular Hemoglobin Concent 32.1, Red Cell Distribution Width 13.0, Platelet Count 219, Mean Platelet Volume 5.6L, Neutrophils (%) (Auto) 61.2, Lymphocytes ( %) (Auto) 27.8, Monocytes (%) (Auto) 8.7, Eosinophils (%) (Auto) 1.5, Basophils (%) (Auto) 0.8, Sodium Level 144, Potassium Level 3.6, Chloride Level 103, Carbon Dioxide Level 23, Anion Gap 18H, Blood Urea Nitrogen 17, Creatinine 1.3H , Estimat Glomerular Filtration Rate , Glucose Level 114H, Calcium Level 8.9, Phosphorus Level 3.3, Magnesium Level 1.9 Height (Feet): 5 Height (Inches): 6.00 Weight (Pounds): 160 General Appearance: no apparent distress EENT: PERRL/EOMI Neck: non-tender Cardiovascular: normal peripheral pulses, normal rate, regular rhythm Respiratory/Chest: chest wall non-tender Abdomen: normal bowel sounds Extremities: normal range of motion, non-tender NENA GANDHI Oct 07, 2016 21:45
[2016-10-08] VITALS: BP 126/76
[2016-10-08] MEDS: DuoNeb 0.5-3(2.5)mg/3ml neb HHN SCH ×3 (01:02→13:37)
[2016-10-08 04:00] VITALS: BP 122/74
[2016-10-08 07:30] LABS: ANION GAP 15 (5-15); CARBON DIOXIDE 24 mEQ/L (20-30); CHLORIDE 104 mEQ/L (98-107); CREATININE 1.2 mg/dL (0.7-1.2); HEMOLYSIS 3; POTASSIUM 3.8 mEQ/L (3.4-4.9); SODIUM 143 mEQ/L (135-145)
[2016-10-08 07:35] LABS: BASOPHILS % (AUTO) 1.1 % (0.0-2.0); EOSINOPHILS % (AUTO) 6.1 % (0.0-3.0); LYMPHOCYTES % (AUTO) 32.9 % (20.0-45.0); MEAN CORPUSCULAR HEMOGLOBIN 31.3 PG (27.0-31.0); MEAN CORPUSCULAR HGB CONC 33.1 G/DL (32.0-36.0); MEAN CORPUSCULAR VOLUME 95 FL (80-99); MEAN PLATELET VOLUME 6.7 FL (6.5-10.1); MONOCYTES % (AUTO) 11.1 % (1.0-10.0); NEUTROPHILS % (AUTO) 48.9 % (45.0-75.0); PLATELET COUNT 220 K/UL (150-450); RED BLOOD COUNT 4.28 M/UL (4.70-6.10); RED CELL DISTRIBUTION WIDTH 13.1 % (11.6-14.8); WHITE BLOOD COUNT 7.6 K/UL (4.8-10.8)
[2016-10-08 08:00] VITALS: BP 134/76
[2016-10-08] MEDS: Aspirin EC 81mg tab ORAL SCH (08:15)
[2016-10-08] MEDS: Heparin 5000 units/ml inj SUBQ SCH (08:20)
[2016-10-08] MEDS ORDERED: CIPRO500 MG PO (10:24)
--- NOTE | 2016-10-08 11:41 | Discharge Summary ---
Discharge Summary Hospital Course Date of Admission Oct 05, 2016 at 06:30 Date of Discharge 10/08/2016 Admitting Diagnosis weakness, pneumonia,acute renal failure LIT Gonzalez is a 76 year old male who was admitted on Oct 05, 2016 at 06:30 for Weakness,Pneumonia Consultations Nephrology Procedures None Hospital Course Patient was treated with IV antibiotic Rocephin and zithromax. He improved. Leukocytosis better. He had ATN and was evaluated by nephrology and he improved with hydration and was discharged back to [place]. Discharge Condition Upon Discharge: stable Discharge Disposition Patient was discharged to half-way Discharge Diagnoses: (1) Dementia (2) Pneumonia (3) ARF (acute renal failure) (4) Hypertension (5) Hyperlipidemia (6) Atherosclerotic cardiovascular disease (7) [facility] resident (8) No history of alcohol use (9) Does not smoke (10) No illicit drug use NENA GANDHI Oct 08, 2016 11:41
[2016-10-08 12:00] VITALS: BP 124/68
--- NOTE | 2016-10-10 08:30 | Diagnostic Imaging Report ---
Indications: Renal failure Technique: Transabdominal real-time grayscale and duplex Doppler imaging of the kidneys, retroperitoneum, and urinary bladder was performed Findings: Comparison: None Right kidney measures 10.3 cm in length. Normal contour, echotexture, cortical thickness. No stones, other focal lesions, hydronephrosis, or obvious perinephric abnormalities. Left kidney measures 9.9 cm in length. Normal contour, echotexture, cortical thickness. Contains multiple circumscribed anechoic cortical foci up to 27 mm. No stones, other focal lesions, hydronephrosis, or obvious perinephric abnormalities. The intrahepatic portion of inferior vena cava is patent and normal caliber. The urinary bladder is eyelid distended without obvious abnormality. Impression: Left renal cortical cysts Otherwise negative retroperitoneal ultrasound
== END 2016-10-08 14:05 | DRG 194 ==
LOC: EDBD 02:33 → EMR 06:07 → 4E 06:30 → EDBEDREQ 06:39 → 4E 20:40
DX: J18.9 Pneumonia, unspecified organism (principal); N17.9 Acute kidney failure, unspecified; I10 Essential (primary) hypertension; E78.5 Hyperlipidemia, unspecified; I25.10 Atherosclerotic heart disease of native coronary artery without angina pectoris; Z78.1 Physical restraint status; D72.829 Elevated white blood cell count, unspecified; F03.90 Unspecified dementia, unspecified severity, without behavioral disturbance, psychotic disturbance, mood disturbance, and anxiety
CPT/HCPCS: 36415; 71010; 76775; 80048; 80053; 81003; 82550; 82553; 83605; 83735; 83880; 84100; 84484; 85007; 85025; 86710; 87040; 87081; 93005; 94640; 94664; J7620